=== PATIENT | female | born 1970 | race Caucasian/White ===

== ENCOUNTER → 2017-06-06 | Outpatient (CLI) | payer OTHER ==
[~2017-06-06] MED LIST: ASPI81TA28 PO; CLB/200 PO; DIAZ-165 PO; DVN80125 PO; ESCI10TA17 PO; LANS30CA12 PO; LEVO25TA5 PO; META1TAB22 PO; NORT10CA2 PO; OXYC-57 PO; TAMO20TA9 PO
== END | disposition home or self-care (01) ==
LOC: C.LABMFLN 09:51
PROVIDERS: ATTEND Family Medicine
DX: R11.0 Nausea (principal); R39.15 Urgency of urination